=== PATIENT | female | born 1960 | race Caucasian/White ===

== ENCOUNTER 2020-07-06 12:53 | Outpatient (CLI) | payer OTHER, SELFPAY ==
[2020-07-06 13:50] LABS: Anion Gap 1 mmol/L (8-16); Blood Urea Nitrogen 16 mg/dL (7-17); Calcium 9.3 mg/dL (8.4-10.2); Carbon Dioxide 32 mmol/L (22-30); Chloride 107 mmol/L (98-107); Estimated Glomerular Filt Rate 57; Glucose 96 mg/dL (65-105); Potassium 4.8 mmol/L (3.4-5.0); Sodium 140 mmol/L (137-145)
== END 2020-07-06 12:54 | disposition home or self-care (01) ==
PROVIDERS: PCP Family Medicine; Visit Provider Internal Medicine Cardiovascular Disease
DX: R94.39 Abnormal result of other cardiovascular function study (principal)
CPT/HCPCS: 36415; 80048

== ENCOUNTER → 2020-07-14 06:27 | Outpatient (CLI) | payer OTHER, SELFPAY ==
[2020-07-14 19:11] LABS: SARS-CoV-2 RNA PCR Negative
== END ==
PROVIDERS: PCP Family Medicine; Visit Provider Internal Medicine Cardiovascular Disease
DX: Z01.812 Encounter for preprocedural laboratory examination (principal); Z20.822 Contact with and (suspected) exposure to COVID-19
CPT/HCPCS: C9803; U0003; U0005

== ENCOUNTER 2020-07-17 00:48 | Day surgery (SDC) | payer OTHER, SELFPAY ==
[2020-07-16 17:16] VITALS: BMI 25.9
[2020-07-17] VITALS (14 sets, daily range): BP systolic 97–111; BP diastolic 59–77; PULSE 59–77; RESP 14–20; TEMP 36.6–36.8; O2SAT 95–98; BMI 33.6
[2020-07-17 07:30] LABS: Basophils Percent Auto 0.4 % (0.2-1.2); Eosinophils Absolute Auto 0.2 K/mm3 (0-0.3); Eosinophils Percent Auto 4.1 % (0-4.4); Hematocrit 43.5 % (37.0-47.0); Hemoglobin 14.4 g/dL (12.0-15.0); Immature Granulocyte Absolute 0.01 K/mm3 (0.00-0.031); Immature Granulocyte Percent A 0.2 % (0-0.5); Lymphocytes Absolute Auto 2.04 K/mm3 (0.9-3.2); Lymphocytes Percent Auto 39.9 % (18.3-44.2); Mean Corpuscular HGB Conc 33.1 g/dl (32-36); Mean Corpuscular Volume 87.7 fl (80-100); Mean Platelet Volume 10.9 fl (7.4-10.4); Monocytes Absolute Auto 0.4 K/mm3 (0.1-0.6); Monocytes Percent Auto 8.2 % (2.6-8.5); Neutrophils Absolute Auto 2.4 K/mm3 (1.3-6.7); Neutrophils Percent Auto 47.2 % (45.5-73.1); Platelet Count Result 203 k/mm3 (150-375); Red Blood Count 4.96 M/mm3 (4.2-5.4); Red Cell Distribution Width 13.9 % (11.5-14.5); White Blood Count 5.1 K/mm3 (4.5-10.0)
[2020-07-17 07:40] LABS: INR 0.9; Prothrombin Time 12.6 Seconds (11.1-14.7)
[2020-07-17 07:42] LABS: Anion Gap 4 mmol/L (8-16); Blood Urea Nitrogen 17 mg/dL (7-17); Carbon Dioxide 28 mmol/L (22-30); Chloride 109 mmol/L (98-107); Estimated CRCL calculation 78 ml/min; Estimated Glomerular Filt Rate > 60; Glucose 86 mg/dL (65-105); Potassium 4.4 mmol/L (3.4-5.0); Sodium 141 mmol/L (137-145)
--- NOTE | 2020-07-17 08:28 | WPDHPUPDATE1 ---
History and Physical Update Update Date/Time: 07/17/20 08:28 History and Physical has been reviewed, including an updated exam of the patient. There are NO changes in the patient's condition. Risks, benefits, and alternatives have been discussed and questions answered. Patient agrees to proceed with procedure.
--- NOTE | 2020-07-17 08:28 | WPDMODSED ---
Moderate Sedation Note-Pt Data Patient Data Diagnosis: Abnormal stress test, new cardiomyopathy Present Complaint: None Procedure to be performed/Plan: Left heart catheterization with selective left and right coronary angiography with left ventriculography and hemodynamics and possible percutaneous intervention and stent implantation Allergies Allergy/AdvReac Type Severity Reaction Status Date / Time No Known Allergies Allergy Unknown Verified 03/30/20 10:00 Home Medications Medication Instructions Recorded Confirmed Type metoprolol succinate 25 mg 25 mg PO DAILY #30 tablet 05/16/20 07/16/20 Rx tablet,extended release 24 hr aspirin 81 mg PO DAILY 07/16/20 07/17/20 History ramipril 1.25 mg PO DAILY 07/16/20 07/16/20 History Current Medications: Active Medications Sodium Chloride (Normal Saline Iv) 500 mls @ 100 mls/hr IV CONT .Q5H RAMYA Sedation/Anesthesia: No previous sedation/anesthesia problems (including family history). [facility] Past Medical History Medical History Hoarseness Menopausal and female climacteric states Shingles Vertigo Family History Family History Mother Family history of mental disorder Family history of blood dyscrasia Cerebrovascular accident Father Hypertension Carcinoma of colon Acute myocardial infarction Family history of coronary artery disease Sibling Family history of elevated blood lipids Social History Social History Smoking status: Never smoker Second hand tobacco smoke exposure: Yes Alcohol intake: current Drinks per week: 1 Alcohol use details: socially Substance use: never Substance use type: does not use Living arrangements: with family Gender identity (if verbalized by the patient): Female Spiritual care concerns: No Mod Sed Physical Exam Physical Exam Pre Procedural Exam: Normal: Appearance, Eyes, Ears, Nose, Neck (Supple, normal range of motion), Throat (Posterior hypopharynx clear, nonerythematous), Airway (Normal anatomy, no obstruction), Lungs (Clear to auscultation bilaterally), Heart Size, Heart Rate, Heart Rhythm, Neuro Exam, Abdomen, Liver, Kidneys, Extremities and Skin Hours since solid foods: 12 Hours since liquid intake: 12 Internal Medicine - PN: Obj Da Vital Signs Vital Signs: Vital Signs - 24 hr 07/17/20 07:23 Temperature 36.6 C Pulse Rate 73 Respiratory Rate 15 Blood Pressure 111/68 Pulse Oximetry 97 Meds/Results Medications: Active Medications Generic Name Dose Route Start Last Admin Trade Name Urbano PRN Reason Stop Dose Admin Sodium Chloride 500 mls @ 100 mls/hr 07/16/20 18:00 Normal Saline Iv IV CONT .Q5H RAMYA Labs CBC & Chem 7: 07/17/20 07:20 07/17/20 07:20 Labs: Laboratory Results - last 24 hr 07/17/20 07/17/20 07/17/20 07:20 07:20 07:20 WBC 5.1 RBC 4.96 Hgb 14.4 Hct 43.5 MCV 87.7 MCH 29.0 MCHC 33.1 RDW 13.9 Plt Count 203 MPV 10.9 H Immature Gran % (Auto) 0.2 Neut % (Auto) 47.2 Lymph % (Auto) 39.9 [facility] % (Auto) 8.2 Eos % (Auto) 4.1 Baso % (Auto) 0.4 Lymph # (Auto) 2.04 [facility] [place] # (Auto) 0.4 Eos # (Auto) 0.2 Baso # (Auto) 0.0 Abs Immat Gran (auto) 0.01 Absolute Neuts (auto) 2.4 Absolute Nucleated RBC 0.0 Nucleated RBC % 0.0 PT 12.6 INR 0.9 Sodium 141 Potassium 4.4 Chloride 109 H Carbon Dioxide 28 Anion Gap 4 L BUN 17 Creatinine 0.80 Estim Creat Clear Calc 78 Estimated GFR > 60 Glucose 86 Calcium 9.0 ASA Classification/Sedation ASA Classification/Sedation ASA Class: III Emergent: No Risks: Risks, benefits and alternatives explained and patient/family accepted plan for sedation. Patient re-evaluated immediately prior to sedation.
--- NOTE | 2020-07-17 08:38 | PM.PROC ---
Procedure Note - Detailed Date of procedure: 07/17/20 Pre-op diagnosis: Abn Stress/Echo Test, Chest Pain Post-op diagnosis: same (Cardiomyopathy) Procedure performed: Left heart catheterization with selective left and right coronary angiography with left ventriculography and hemodynamics Description of procedure: BRIEF HISTORY OF PRESENT ILLNESS: Patient is a pleasant 60-year-old female with a family history premature atherosclerosis and complaints of chest pain found to have new diagnosis cardiomyopathy on noninvasive ischemic evaluation with complaints of chest pain referred for further evaluation coronary anatomy. PROCEDURES PERFORMED: 1. Left heart catheterization 2. Selective left and right coronary angiography 3. Left ventriculography and hemodynamics 4. Moderate/conscious sedation administration 5. Selective right femoral angiography CATHETERS UTILIZED: Left coronary system- 5 Burmese JL4 catheter Right coronary system- 5 Burmese JR4 catheter Left ventriculography and hemodynamics- 5 Burmese angled pigtail catheter PROCEDURE IN DETAIL: After verbal and written informed consent was obtained the patient, risks, benefits, and alternatives explained in detail the patient agreed to proceed with the plan of care as outlined above. The patient was subsequently brought to the cardiac catheterization lab, placed on the cardiac catheterization table, and prepped and draped in the usual sterile fashion. Utilizing approximately 15cc of 1% subcutaneous Lidocaine, the right groin was then locally anesthetized. Utilizing the modified Seldinger technique, a 5 Burmese arterial vascular access sheath was inserted in the right common femoral artery easily and without complications. Through this access, coronary angiography was subsequently obtained in multiple standard re-projections. Following this, a 5 Burmese angled pigtail catheter was advanced retrograde across aortic valve into the cavity of the left ventricle. Left ventriculography was performed and pullback across aortic valve was subsequently recorded. The vascular access sheath and angiographic catheters were flushed before and after catheter exchanges. At the conclusion of the diagnostic portion of the procedure, all angiographic guidewires and catheters were removed and the 5 Burmese arterial vascular access sheath was then pulled and satisfactory hemostasis was achieved using manual compression. There no complications noted at the conclusion of the diagnostic portion of the study. MODERATE SEDATION/ANESTHESIA ADMINISTRATION: Patient reports no prior problems with sedation/anesthesia. Please see pre-sedation noted for physical examination documentation. Sedation start time was 0851 and end time was 0920 for a total intra-service/procedure face-face time of 29 minutes. A total of 1 mg intravenous Versed and a total of 50 mcg intravenous Fentanyl was administered for moderate sedation. Moderate sedation was administered by qualified/certified observer Leora Dia RN under my supervision with intra-procedure [id number] observation and management throughout the entirety of the procedure. There were no other issues or complications and patient tolerated the procedure well. See post-anesthesia documentation. Anesthesia: local and other Surgeon: Frederick Olson MD Drains: No Packing: No Pathology: none sent Complications: No immediate complications Condition: stable Disposition: same day Findings: CORONARY ANGIOGRAPHY: The LEFT MAIN arose from the left coronary cusp and was without angiographically significant disease. The left main then bifurcated into the left anterior descending artery and circumflex coronary artery. LEFT ANTERIOR DESCENDING ARTERY: Moderate caliber vessel with a focal 10-20% ostial stenosis without angiographic disease noted in the remainder of the vessel extending to the LV apex. Small caliber 1st and 2nd diagonal branches without angiographic disease. CIRCUMF
--- NOTE | 2020-07-17 14:30 | SUR.PHASEII ---
UP IN CHAIR. DENIES CP OR SOB. R. GROIN SITE W/ C/D/I GUAZE AND TEGADERM DRESSING. SITE SOFT, NONTENDER; NO BLEEDING OR HEMATOMA NOTED. R. PEDAL PULSE STRONG. IV SITE DISCONTINUED AND DRESSED. TOLERATED WELL. DRESSING FOR DISCHARGE HOME.
--- NOTE | 2020-07-17 15:00 | SUR.PHASEII ---
REVIEWED ALL DISCHARGE INSTRUCTIONS AND FOLLOW UP CARE W/ PT. AND . QUESTIONS ANSWERED. VOICED UNDERSTANDING OF ALL. DISCHARGED HOME, OUT VIA WC WITH ALL PERSONAL BELONGINGS AND DISCHARGE PACKET TO 'S WAITING CAR. NO DISTRESS NOTED. VOICES NO C/O.
== END 2020-07-17 15:00 | disposition home or self-care (01) ==
PROVIDERS: PCP Family Medicine; Visit Provider Internal Medicine Cardiovascular Disease
PROC: 4A023N7 Measurement of Cardiac Sampling and Pressure, Left Heart, Percutaneous Approach (ICD-10-PCS; CPT 93452; principal; 2020-07-17 08:30)
DX: R94.39 Abnormal result of other cardiovascular function study (principal); R93.1 Abnormal findings on diagnostic imaging of heart and coronary circulation; R07.9 Chest pain, unspecified; I25.10 Atherosclerotic heart disease of native coronary artery without angina pectoris; I42.9 Cardiomyopathy, unspecified; I51.9 Heart disease, unspecified; Z79.82 Long term (current) use of aspirin
CPT/HCPCS: 36415; 80048; 85025; 85610; 93458; C1887; C1894; C9803; J1644; J2250; J3010; J7040; U0003; U0005

== ENCOUNTER 2020-07-24 13:47 | Outpatient (CLI) | payer OTHER, SELFPAY ==
[2020-07-24 14:48] LABS: Anion Gap 3 mmol/L (8-16); Blood Urea Nitrogen 13 mg/dL (7-17); Calcium 9.8 mg/dL (8.4-10.2); Carbon Dioxide 31 mmol/L (22-30); Chloride 106 mmol/L (98-107); Estimated Glomerular Filt Rate > 60; Glucose 82 mg/dL (65-105); Potassium 4.4 mmol/L (3.4-5.0); Sodium 140 mmol/L (137-145)
== END 2020-07-24 13:48 | disposition home or self-care (01) ==
PROVIDERS: PCP Family Medicine; Referring Provider Nurse Practitioner Adult Health; Visit Provider Internal Medicine Cardiovascular Disease
DX: R94.39 Abnormal result of other cardiovascular function study (principal); I42.8 Other cardiomyopathies
CPT/HCPCS: 36415; 80048; 84443

== ENCOUNTER 2020-10-29 08:32 | Outpatient (CLI) | payer OTHER, SELFPAY ==
[2020-10-29 08:46] LABS: Basophils Percent Auto 0.2 % (0.2-1.2); Eosinophils Absolute Auto 0.2 K/mm3 (0-0.3); Eosinophils Percent Auto 4.9 % (0-4.4); Hematocrit 43.5 % (37.0-47.0); Hemoglobin 14.1 g/dL (12.0-15.0); Immature Granulocyte Absolute 0.01 K/mm3 (0.00-0.031); Immature Granulocyte Percent A 0.2 % (0-0.5); Lymphocytes Absolute Auto 1.87 K/mm3 (0.9-3.2); Lymphocytes Percent Auto 40.1 % (18.3-44.2); Mean Corpuscular HGB Conc 32.4 g/dl (32-36); Mean Corpuscular Hemoglobin 29.4 pg (26-34); Mean Corpuscular Volume 90.6 fl (80-100); Mean Platelet Volume 11.5 fl (7.4-10.4); Monocytes Absolute Auto 0.4 K/mm3 (0.1-0.6); Monocytes Percent Auto 7.5 % (2.6-8.5); Neutrophils Absolute Auto 2.2 K/mm3 (1.3-6.7); Neutrophils Percent Auto 47.1 % (45.5-73.1); Platelet Count Result 181 k/mm3 (150-375); Red Cell Distribution Width 13.4 % (11.5-14.5); White Blood Count 4.7 K/mm3 (4.5-10.0)
[2020-10-29 08:59] LABS: Alanine Aminotransferase 21 U/L (4-35); Albumin Level 3.9 g/dL (3.5-5.1); Alkaline Phosphatase 78 U/L (38-126); Anion Gap 5 mmol/L (8-16); Aspartate Amino Transferase 25 U/L (14-36); Bilirubin,Total 0.4 mg/dL (0.2-1.3); Blood Urea Nitrogen 13 mg/dL (7-17); Calcium 9.3 mg/dL (8.4-10.2); Carbon Dioxide 30 mmol/L (22-30); Chloride 107 mmol/L (98-107); Cholesterol 206 mg/dL (0-200); Estimated Glomerular Filt Rate > 60; Glucose 90 mg/dL (65-105); HDL Direct 64 mg/dL; Potassium 4.1 mmol/L (3.4-5.0); Sodium 142 mmol/L (137-145); Triglycerides 78 mg/dL (<150)
[2020-10-29 09:10] LABS: LDL Cholesterol Direct 89 mg/dL
== END 2020-10-29 08:33 | disposition home or self-care (01) ==
PROVIDERS: PCP Family Medicine; Visit Provider Family Medicine
DX: E78.2 Mixed hyperlipidemia (principal); I42.8 Other cardiomyopathies
CPT/HCPCS: 36415; 80053; 80061; 85025

== ENCOUNTER 2020-11-21 07:42 | Outpatient (CLI) | payer OTHER, SELFPAY ==
--- NOTE | ~2020-11-21 | MM_ITS ---
EXAMINATION: MM scrn juan implant BI w lynette HISTORY: Screening mammogram TECHNIQUE: Craniocaudal and mediolateral oblique 3-D tomosynthesis images with implant displacement a nd synthetic 2-D images were generated. Craniocaudal and mediolateral oblique views of the breasts wi thout implant displacement were obtained using full field digital mammography. CAD analysis was submi tted and interpreted. COMPARISON: Comparison to multiple prior studies sequentially, with oldest reviewed study dated 08/16. BREAST PARENCHYMAL COMPOSITION: There are scattered areas of fibroglandular density. FINDINGS: No significant change to right breast calcifications in the upper outer quadrant. There are bilateral subpectoral saline implants. There is no evidence of suspicious mass, calcification, or ar chitectural distortion to suggest malignancy in either breast. There has been no suspicious interval change. IMPRESSION: 1. No mammographic evidence of malignancy. 2. Recommend routine screening mammography in one year. BI-RADS Category 2: Benign finding(s). Reviewed, dictated and finalized at location A.
== END 2020-11-21 07:43 | disposition home or self-care (01) ==
LOC: ANHIMG 07:45
PROVIDERS: PCP Family Medicine; Visit Provider Family Medicine
DX: Z12.31 Encounter for screening mammogram for malignant neoplasm of breast (principal)
CPT/HCPCS: 77063; 77067

== ENCOUNTER 2021-12-25 14:06 | Outpatient (CLI) | payer OTHER, SELFPAY ==
--- NOTE | ~2021-12-25 | MM_ITS ---
EXAMINATION: MM scrn juan implant BI w lynette HISTORY: Screening mammogram TECHNIQUE: Craniocaudal and mediolateral oblique 3-D tomosynthesis images with implant displacement a nd synthetic 2-D images were generated. Craniocaudal and mediolateral oblique views of the breasts wi thout implant displacement were obtained using full field digital mammography. CAD analysis was submi tted and interpreted. COMPARISON: Comparison to multiple prior studies sequentially, with oldest reviewed study dated 12/18. BREAST PARENCHYMAL COMPOSITION: The breasts are heterogenously dense, which may obscure small masses FINDINGS: There is no evidence of suspicious mass, calcification, or architectural distortion to sugg est malignancy in either breast. There has been no suspicious interval change. IMPRESSION: 1. No mammographic evidence of malignancy. 2. Recommend routine screening mammography in one year. BI-RADS Category 1: Negative Reviewed, dictated and finalized at location A.
== END 2021-12-25 14:07 | disposition home or self-care (01) ==
PROVIDERS: PCP Family Medicine; Visit Provider Family Medicine
DX: Z12.31 Encounter for screening mammogram for malignant neoplasm of breast (principal)
CPT/HCPCS: 77063; 77067

== ENCOUNTER 2022-12-08 05:55 | Day surgery (SDC) | payer OTHER, SELFPAY ==
[2022-11-18 09:19] VITALS: BMI 25.9
--- NOTE | 2022-12-05 14:51 | WPDANESEPPF ---
Anes - Initial Pre Proc Eval Procedure: Operation Date: 12/08/22 07:30 Proposed Procedures p Screening Colonoscopy - Gigi Mendosa MD Date/Time: 12/05/22 14:51 Surgeon: Gigi Mendosa MD Pre Op Diagnosis: Neoplasm Screening. family history of colon cancer Patient Data Age: 62 Gender: F Height: 1.7 m Weight: 75 kg Allergies Allergy/AdvReac Type Severity Reaction Status Date / Time No Known Allergies Allergy Unknown Verified 12/08/22 06:22 Home Medications Medication Instructions Recorded Confirmed Type aspirin 81 mg tablet 81 mg PO DAILY 07/16/20 12/08/22 History atorvastatin 20 mg tablet 20 mg PO HS #30 tabs 07/17/20 12/08/22 Rx ramipril 1.25 mg capsule 1.25 mg PO DAILY 10/18/20 12/08/22 History metoprolol succinate 25 mg 25 mg PO DAILY #90 tabs 01/15/21 12/08/22 Rx tablet,extended release 24 hr sodium,potassium,mag sulfates 17.5 See Rx Instructions PO .COMPLEX 09/25/22 12/08/22 Rx gram-3.13 gram-1.6 gram oral soln #354 mL (Suprep Bowel Prep Kit) zolpidem 6.25 mg tablet,extended 6.25 mg PO QHS #14 tabs 10/28/22 12/08/22 Rx release,multiphase Patient hx anesthesia problems: none Family hx anesthesia problems: none Results Review: All pre-operative results and documents have been reviewed as part of the pre-operative evaluation. [facility] Past Medical History Medical History (Updated 12/05/22 @ 14:52 by Kelby Rosales MD) Family history of colon cancer Hoarseness Menopausal and female climacteric states Mixed hyperlipidemia Nonischemic cardiomyopathy dr. davis 2. cardiac cath 1. Mild nonobstructive disease with focal 10-20% ostial LAD 2. Mild LV systolic dysfunction ejection with visually estimated ejection fraction of 50% without identified wall motion abnormalities consistent with nonischemic cardiomyopathy 3. No hemodynamically significant aortic stenosis or mitral regurgitation. 4. Preserved left ventricular filling pressures Recommendations: 1. Aggressive secondary risk factor modification and optimization medical therapy 2. Continue Aspirin 81 mg daily, add statin therapy for risk reduction with documented CAD. Shingles Vertigo Surgical History Surgical History Hx of cardiac cath 07.17.20 dr. davis 1. Mild nonobstructive disease with focal 10-20% ostial LAD 2. Mild LV systolic dysfunction ejection with visually estimated ejection fraction of 50% without identified wall motion abnormalities consistent with nonischemic cardiomyopathy 3. No hemodynamically significant aortic stenosis or mitral regurgitation. 4. Preserved left ventricular filling pressures Recommendations: 1. Aggressive secondary risk factor modification and optimization medical therapy 2. Continue Aspirin 81 mg daily, add statin therapy for risk reduction with documented CAD. 3. Follow post cardiac catheterization precautions Family History Family History Mother Family history of mental disorder Family history of blood dyscrasia Cerebrovascular accident Father Hypertension Carcinoma of colon Acute myocardial infarction Family history of coronary artery disease Sibling Family history of elevated blood lipids Social History Social History Smoking status: Never smoker Second hand tobacco smoke exposure: Yes Alcohol intake: never Drinks per week: 1 Alcohol use details: socially Substance use: never Substance use type: does not use Living arrangements: with family Gender identity (if verbalized by the patient): Female Spiritual care concerns: No Anes - Eval Final PreProcedure Day of Procedure 12/05/22 14:51 Patient weight: normal Heart: regular rate and rhythm Lungs: clear to auscultation and normal air movement Airway: Mallampati scale class II Neuro
[2022-12-08 06:28] VITALS: BP 114/62; PULSE 44; RESP 14; TEMP 37.3; O2SAT 99
[2022-12-08] MEDS: LACTATED RINGERS 1,000 ML 150 ML IV CONT (06:40)
--- NOTE | 2022-12-08 07:24 | PM.HPGS ---
History of Present Illness History of Present Illness Consent: Risks, benefits, and alternatives have been discussed and questions answered. Patient agrees to proceed with procedure. Chief complaint: Neoplasm Screening. family history of colon cancer Narrative: Donna Dillon is a 62 year old female Presents for screening colonoscopy. Patient reports that her weight appetite and bowel movements are normal. Patient denies abdominal pain. She has had no bleeding. Family history is significant her father had colon cancer. Patient presents today for screening colonoscopy. [facility] Past Medical History Medical History (Updated 12/05/22 @ 14:52 by Kelby Rosales MD) Family history of colon cancer Hoarseness Menopausal and female climacteric states Mixed hyperlipidemia Nonischemic cardiomyopathy dr. davis 2 cardiac cath 1. Mild nonobstructive disease with focal 10-20% ostial LAD 2. Mild LV systolic dysfunction ejection with visually estimated ejection fraction of 50% without identified wall motion abnormalities consistent with nonischemic cardiomyopathy 3. No hemodynamically significant aortic stenosis or mitral regurgitation. 4. Preserved left ventricular filling pressures Recommendations: 1. Aggressive secondary risk factor modification and optimization medical therapy 2. Continue Aspirin 81 mg daily, add statin therapy for risk reduction with documented CAD. Shingles Vertigo Surgical History Surgical History Hx of cardiac cath 2 dr. davis 1. Mild nonobstructive disease with focal 10-20% ostial LAD 2. Mild LV systolic dysfunction ejection with visually estimated ejection fraction of 50% without identified wall motion abnormalities consistent with nonischemic cardiomyopathy 3. No hemodynamically significant aortic stenosis or mitral regurgitation. 4. Preserved left ventricular filling pressures Recommendations: 1. Aggressive secondary risk factor modification and optimization medical therapy 2. Continue Aspirin 81 mg daily, add statin therapy for risk reduction with documented CAD. 3. Follow post cardiac catheterization precautions Family History Family History Mother Family history of mental disorder Family history of blood dyscrasia Cerebrovascular accident Father Hypertension Carcinoma of colon Acute myocardial infarction Family history of coronary artery disease Sibling Family history of elevated blood lipids Social History Social History Smoking status: Never smoker Second hand tobacco smoke exposure: Yes Alcohol intake: never Drinks per week: 1 Alcohol use details: socially Substance use: never Substance use type: does not use Living arrangements: with family Gender identity (if verbalized by the patient): Female Spiritual care concerns: No Meds Home Medications and Allergies Home Medications Medication Instructions Recorded Confirmed Type aspirin 81 mg tablet 81 mg PO DAILY 07/16/20 12/08/22 History atorvastatin 20 mg tablet 20 mg PO HS #30 tabs 07/17/20 12/08/22 Rx ramipril 1.25 mg capsule 1.25 mg PO DAILY 10/18/20 12/08/22 History metoprolol succinate 25 mg 25 mg PO DAILY #90 tabs 01/15/21 12/08/22 Rx tablet,extended release 24 hr sodium,potassium,mag sulfates 17.5 See Rx Instructions PO .COMPLEX 09/25/22 12/08/22 Rx gram-3.13 gram-1.6 gram oral soln #354 mL (Suprep Bowel Prep Kit) zolpidem 6.25 mg tablet,extended 6.25 mg PO QHS #14 tabs 10/28/22 12/08/22 Rx release,multiphase Allergies Allergy/AdvReac Type Severity Reaction Status Date / Time No Known Allergies Allergy Unknown Verified 12/08/22 06:22 Vital Signs Vital Signs - 24 hr 12/08/22 06:28 Temperature 99.2 F Pulse Rate 44 L Respiratory Rate 14 Blood Pressure 114/
[2022-12-08 07:51] VITALS: BP 90/67; PULSE 43; RESP 16; O2SAT 99
[2022-12-08 08:01] VITALS: BP 105/63; PULSE 40; RESP 20; O2SAT 98
[2022-12-08 08:11] VITALS: BP 116/77; PULSE 63; RESP 18; O2SAT 100
--- NOTE | 2022-12-08 14:19 | WPDANESPN ---
Anes - Prog Note Post-Op Date/Time: 12/08/22 14:19 Cardiovascular status: normal Respiratory status: normal Airway patency: baseline Mental status: baseline Post-Op hydration status: normal Vital Signs: Last Vital Signs Temp 37.3 C 12/08/22 06:28 Pulse 63 12/08/22 08:11 Resp 18 12/08/22 08:11 BP 116/77 12/08/22 08:11 Pulse Ox 100 12/08/22 08:11 O2 Del Method Room Air 12/08/22 08:11 Pain Score (VAS): 0 I/O: Intake & Output 12/07/22 12/08/22 12/08/22 23:59 07:59 15:59 Intake Total 500 50 Balance 500 50 Post-procedural complaints: none Patient Feedback: Patient satisfied with anesthetic care.
== END 2022-12-08 08:24 | disposition home or self-care (01) ==
PROVIDERS: PCP Family Medicine; Visit Provider Internal Medicine Gastroenterology
PROC: 0DJD8ZZ Inspection of Lower Intestinal Tract, Via Natural or Artificial Opening Endoscopic (ICD-10-PCS; CPT 45378; principal; 2022-12-08 07:30)
DX: Z80.0 Family history of malignant neoplasm of digestive organs (principal)
CPT/HCPCS: 45378

== ENCOUNTER 2025-05-11 08:29 | Outpatient (CLI) | payer OTHER, SELFPAY ==
--- OUTSIDE RECORDS SUMMARY | 2025-05-11 08:43 | XMS_ITS | Clinical Summary ---
Author Organization [facility] [address] Address [address] [place] [address] Care Team Providers Care Furnace Firer Name Role Phone Davida Mckeno MD Primary Care Provider + Allergies No known active allergies Medications metoprolol XL (TOPROL-XL) 50 mg extended release tablet Take 1 tablet (50 mg total) by mouth daily 90 tablet 3 07/05/2024 6 Active aspirin (Adult Low Dose Aspirin) 81 mg enteric coated tabletIndicatio ns:prevention of thrombosis Take 1 tablet (81 mg total) by mouth daily 90 tablet 3 07/05/2024 6 Active atorvastatin (LIPITOR) 80 mg tabletIndicatio ns:Mild coronary artery disease Take 1 tablet (80 mg total) by mouth daily 90 tablet 3 07/05/2024 6 Active ramipriL (ALTACE) 2.5 mg capsuleIndicati ons:hypertensio n Take 1 capsule (2.5 mg total) by mouth daily 90 capsule 3 07/05/2024 6 Active Active Problems Problem Noted Date Diagnosed Date Hepatic cyst 03/03/2023 Assessment & Plan (03/03/2023 10:14 AM CDT): Hepatic cyst found incidentally RUQ ultrasound today Premature ventricular contractions (PVCs) (VPCs) 02/09/2023 Palpitations 06/06/2022 Mixed hyperlipidemia 12/20/2021 Mitral valve anterior leaflet prolapse 2 Nonrheumatic mitral valve regurgitation 12/21/19 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 No issues post procedure. Tele SR/SB with few PVCs, patient remained asymptomatic. - EP following, clear for discharge. Follow up as scheduled. Coronary artery disease invo lving [place] coronary artery of [place] heart without angina pectoris 07/24/2020 Abnormal stress test 06/26/2020 Nonischemic cardiomyopathy 06/26/2020 Assessment & Plan (03/03/2023 10:13 AM CDT): Appears euvolemic on exam Continue GDMT Assessment & Plan (02/09/2023 5:54 PM CDT): 11/2021 EF 49%. - cont metop, ramipril --> lisinopril Other chest pain 06/26/2020 QT prolongation 06/26/2020 Family history of premature CAD 06/26/2020 Resolved Problems Problem Noted Date Diagnosed Date Resolved Date Dyslipidemia 06/26/2020 12/20/2021 Surgical History Surgery Date Site/Laterality Comments ELBOW FRACTURE SURGERY Left pin inserted 1990s TUBAL LIGATION 05/25/1991 - 05/24/1992 AUGMENTATION MAMMOPLASTY 05/25/1997 - 05/24/1998 CARDIAC CATHETERIZATION 07/17/2020 COLONOSCOPY Multiple-- Last 12/2022 Medical History Medical History Date Comments Cardiomyopathy NICM per cards O VN; EF 49% per TTE 11/2021 Heart disease cardiomyopathy Hypertension Diabetes mellitus Hyperlipidemia Treated with sta tin PVC (premature ventricular contraction) Family History Medical History Relation Name Comments Hyperlipidemia Brother 1 Tucker Hypertension Brother 1 Tucker Heart attack Brother 2 Bryan Mental illness Brother 2 Bryan Hypertension Brother 3 Gigi Cancer Father Mitzy Broderick Colon cancer Father Mitzy Broderick Heart attack Father Mitzy Broderick Heart disease Father Mitzy Broderick Stroke Mother Romelia Broderick Anesthesia problems Neg Hx Relation Name Status Comments Brother 1 Tucker Alive Brother 2 Bryan Brother 3 Gigi Father Mitzy Broderick (Age 82) Mother Romelia Broderick (Age 85) Sister 1 Alive Sister 2 Alive Social History Tobacco Use Types Packs/Day Years Used Date Smoking Tobacco: Never Smokeless Tobacco: Never Alcohol Use Standard Drinks/Week Comments Not Currently 0 (1 standard drink = 0.6 oz pur e alcohol) AUDIT-C Answer Date Recorded Q1: How often do you have a drink containing alc ohol? Monthly or less 02/09/2023 Q2: How many drinks containi ng alcohol do you have on a typical day when you are drinking? 1 or 2 02/09/2023 Q3: How often do you have si x or more drinks on one occasion? Never 02/09/2023 Personal Safety Answer Date Recorded Have you ever been in or are you currently in a harmful physical or emotional relationship or is someone making you feel afraid or unsafe? 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[employer] Gender Identity Female 06/27/2020 8:52 PM [employer]STER [employer]CH[employer] Sexual Orientation Straight 06/27/2020 8: 52 PM [employer] Last Filed Vital Signs Vital Sign Reading Time Taken Comments Blood Pressure 106/72 07/05/2024 10:45 AM MASTER MERCHANDISER Pulse 77 07/05/2024 10:45 AM MASTER MERCHANDISER Temperature 36.9 C (98.4 F) 02/10/2023 9:20 AM CDT Respiratory Rate 16 02/10/2023 9:20 AM CDT Oxygen Saturation 98% 07/05/2024 10:45 AM MASTER MERCHANDISER Inhaled Oxygen Concentration - - Weight 72.1 kg (159 lb) 07/05/2024 10:45 AM MASTER MERCHANDISER Height 170.2 cm (5' 7) 07/05/2024 10:45 AM MASTER MERCHANDISER Body Mass Index 24.9 07/05/2024 10:45 AM MASTER MERCHANDISER Plan of Treatment Health Maintenance Due Date Last Done Comments Breast Cancer Screening-Mammogram 1960 Cervical Cancer Screening 1960 Colon Cancer Screening-Colonoscopy 1960 Depression Screening 1960 Hepatitis C Screening 1960 DTaP/Tdap/Td Vaccine (1 - Tdap) 1971 Hepatitis B Screening 1978 Regular Well Visit/Exam 18-64 1978 Zoster Vaccine (1 of 2) 2010 Influenza Vaccine (#1) 2025 03/30/2020 Pneumococcal vaccine <65 Aged Out No longer eligible based on patient's age to complete this topic Medical Devices Implanted Type Area [employer] Advanced Operator Maintainer Device Identifier Shelf Expiration Date Model / Serial / Lot [employer] Device Vascular Closure Femoral Artery Bioabsorbable Dual Method Vascade 6-7fr Collagen [id number] - [id number] Implanted:Qty: 1 on 02/09/2023 by Viviana Amos MD at [facility] Other - see comments [employer] 10/30/2024 [id number] / / [id number] 19A Description:Vascade closure device [employer] Vascade Mvp 6-12fr Venous Closure [id number] - [id number] Implanted:Qty: 1 on 02/09/2023 by Viviana Amos MD at [facility] Other - see comments [employer] 10/28/2024 [id number] / / [id number] 12A Description:Vascade closure device [employer] Vascade Mvp 6-12fr Venous Closure [id number] - [id number] Implanted:Qty: 1 on 02/09/2023 by Viviana Amos MD at [facility] Other - see comments [employer] 10/28/2024 [id number] / / [id number] 12A Description:Vascade closure [employer] Vascade Mvp 6-12fr Venous Closure [id number] - [id number] Implanted:Qty: 1 on 02/09/2023 by Viviana Amos MD at [facility] Other - see comments [employer] 10/28/2024 [id number] / / [id number] 12A Description:Vascade closure device Breast Implants Breast Insurance [facility] [id number] [facility] [id number] Advance Directives For more information, please contact: [phone] * Full Code (Latest Code Status on File) Date Activated Date Inactivated Comments 02/09/2023 5:40 PM 02/10/2023 2:54 PM Care Teams Furnace Firer Relationship Specialty Start Date End Date Davida Mckeon MD PCP - General Family Medicine 04/16/20
--- OUTSIDE RECORDS SUMMARY | 2025-05-11 08:43 | XMS_ITS | Clinical Summary ---
Author Organization [facility] Address [address] [place] [address] Care Team Providers Care Drip Pumper Name Role Phone Unavailable Primary Care Provider Unavailabl e Source Comments [facility],non-owned Affiliates and Associated Physician Practices is amultiple site organization consisting of ambulatory clinics and hospital sitesin [place], [place]. This disclosure is being madepursuant to the Care Everywhere program and may not contain all information available regarding this patient. Last updated 18.[facility] Allergies No known active allergies Medications * Be aware that medications may not be up to date on this document. Alwaysverify current medications with the patient. No known medications Social History Tobacco Use Types Packs/Day Years Used Date Smoking Tobacco: Never Assessed Comments Unknown Sex and Gender Information Value Date Recorded Sex Assigned at Not on file Legal Sex Female 11:32 AM CDT Gender Identity Not on file Sexual Orientation Not on file Last Filed Vital Signs Vital Sign Reading Time Taken Comments Blood Pressure 128/68 08/02/2017 3:31 PM CDT Pulse 72 08/02/2017 3:31 PM CDT Temperature 36.3 C (97.4 F) 08/02/2017 3:31 PM CDT Respiratory Rate - - Oxygen Saturation 97% 08/02/2017 3:31 PM CDT Inhaled Oxygen Concentration - - Weight 72.6 kg (160 lb) 08/02/2017 3:31 PM CDT Height 170.2 cm (5' 7) 08/02/2017 3:31 PM CDT Body Mass Index 25.06 08/02/2017 3:31 PM CDT Plan of Treatment Health Maintenance Due Date Last Done Comments NEO (AGES 45-75) - COL ON CA SCREENING 1960 COLON MONITORING 1960 COLONOSCOPY - COLON CA SCREENING 1960 CT COLONOGRAPHY - COLON CA SCREENING 1960 Colorectal Cancer Screening 1960 FIT - COLON CA SCREENING 1960 FLEX SIG - COLON CA SCREENING 1960 LIPID TESTING 1960 MAMMOGRAM 1960 HIV SCREENING 1975 HEPATITIS C SCREENING 06/06/1978 DTAP/TDAP/TD VACCINES (1 - Tdap) 1979 PNEUMOCOCCAL VACCINE 50+ (1 of 1 - PCV) 2010 ZOSTER VACCINE (1 of 2) 2010 SCREENING FOR DIABETES 08/02/2017 DEPRESSION SCREENING 05/25/2024 COVID-19 VACCINE (1 - 2024-2 6 season) 2025 INFLUENZA VACCINE (#1) 2025 Respiratory Syncytial Virus (RSV) Vaccine Pt: or over 60 yrs (1 - 1-dose 75+ series) 2035 HEPATITIS B VACCINE Aged Out No longe r eligible based on patient's age to complete this topic HIB VACCINE Aged Out No longer eligi ble based on patient's age to complete this topic HPV VACCINE Aged Out No longer eligi ble based on patient's age to complete this topic MENINGOCOCCAL (Group B) VACC INE SHARED DECISION-MAKING Aged Out No longer eligibl e based on patient's age to complete this topic MENINGOCOCCAL GROUPS A/C/Y/W VACCINE Aged Out No longer eligible b ased on patient's age to complete this topic Insurance [facility]
[2025-05-11 18:41] LABS: Hematocrit 43.5 % (37.0-47.0); Hemoglobin 13.8 g/dL (12.0-15.0); Immature Granulocyte Percent A 0.2 % (0-0.5); Lymphocytes Absolute Auto 1.93 K/mm3 (0.9-3.2); Mean Corpuscular HGB Conc 31.7 g/dl (32-36); Mean Corpuscular Hemoglobin 29.2 pg (26-34); Mean Corpuscular Volume 92.0 fl (80-100); Nucleated Red Blood Cells Absolute Auto 0.000 K/mm3 (0.0-0.012); Nucleated Red Blood Cells Perc 0.0 % (0.0-0.2); Platelet Count Result 194 k/mm3 (150-375); Red Blood Count 4.73 M/mm3 (4.2-5.4); White Blood Count 5.4 K/mm3 (4.5-10.0)
[2025-05-11 18:53] LABS: Alanine Aminotransferase 28 U/L (6-35); Albumin Level 4.0 g/dL (3.5-5.1); Alkaline Phosphatase 90 U/L (38-126); Anion Gap 6 mmol/L (4-12); Aspartate Amino Transferase 43 U/L (14-36); Bilirubin,Total 0.5 mg/dL (0.2-1.3); Blood Urea Nitrogen 19 mg/dL (7-17); Calcium 9.8 mg/dL (8.4-10.2); Carbon Dioxide 28 mmol/L (22-30); Chloride 106 mmol/L (98-107); Cholesterol 190 mg/dL (0-200); Estimated Glomerular Filt Rate > 60; Glucose 63 mg/dL (65-110); HDL Direct 68 mg/dL; Potassium 4.8 mmol/L (3.4-5.0); Sodium 140 mmol/L (137-145); Total Protein 6.7 g/dL (6.3-8.2); Triglycerides 83 mg/dL (<150)
== END 2025-05-11 08:30 | disposition home or self-care (01) ==
LOC: ANHGOSHLAB 08:30
PROVIDERS: PCP Family Medicine; Visit Provider Family Medicine
DX: I42.8 Other cardiomyopathies (principal); E78.2 Mixed hyperlipidemia
CPT/HCPCS: 36415; 80053; 80061; 85025